=== PATIENT | male | born 1950 | race Caucasian/White ===

== ENCOUNTER 2017-05-20 12:42 | Outpatient (RCR) | payer MEDICARE, OTHER, SELFPAY ==
--- NOTE | 2017-05-25 08:03 | HP.PTEVAL_ITS ---
Patient's Visit Information Cecil DAN is a 67 year old M referred to Physical Therapy by DO MAL Valle with a diagnosis of R medial knee pain, degenerative menical tear. Date of Evaluation: 05/20/17 Physical Therapist: Bernard Bai - Visit Plan Frequency: 2x /Week Duration: 4 Weeks Plan: Start with core and hip ER strengthening. Progress quad/HS strengthening. Avoid deep squating. Progress as tolerated. Start with aquatic setting. Pt. desires to trial on own for 1-2 weeks and follow up with PT at that point. - Subjective Subjective: Pt. is here today for his initial evaluation with diagnosis of R knee pain, medial degenerative meniscal tear. Pt. is a plesant 67 y.o. male who is known to this PT after having a lumbar spine disectomy. Pt. arrives today with R medial knee pain that has been progressively getting worse over the last 4 months. He is questioning if this is coming from his back or not. Pt. reports increased pain: walking, squating, stairs, T-mill walking. Decreased pain: icing, OTC meds. Pt. denies locking or popping. Pt. denies N/T in either LE. Pt. is very active but has slowed down over the last 6 months after having back surgery. He performs a lot of walking and machine exercises in gym. He has stopped doing squats and LE strenthening as this point in time. He denies an event or mechanism of injury. He is hopeful to reduce symptoms in order to get back to gym and recreational exercises without issues. - Pain R medial knee Pain Intensity (Out of 10): 2 Pain Intensity Range: 0, 6 - Objective POSTURE: Pt. has slight R knee varus positioning. Pt. does have increased lateral wt. shift to L side. Pt. does have TKE in stance. Normal iliac crest positioning. PALPATION: Pt. has increased tenderness along medial joint line, no pain at patellar tendon and minimal symptoms at MCL. Pt. has no popliteal symptoms. No lateral R knee pain. NEUROLOGICAL: Pt. has normal sensation throughout bilateral LEs to light and sharp touch. Pt. has 2+ achilles and patellar DTR bilaterally. Pt. is able to rise on heels and toes without LOB or visible signs of weakness. ROM: L Knee- 0-0-132deg. R knee 0-0-126deg pt. reports increased pain with increased flexion and TKE with over pressure. Pt. has normal hip ROM, except tight with bilateral hip ER/IR and HS. LUMBAR SPINE- normal full mobility without increase in comparable sign. MMT: RLE- ankle 5/5 throughout; knee- ext 4+/5, flexion 4+/5 mild increase NW; hip- flexion 5-/5, abd 4/5, ext 4+/5. LLE- ankle- 5/5 throughout; knee- ext 5/5, flexion 5-/5; hip - flexion 4+/5, abd 4/5, ext 4+/5. Core strength- poor+. Pt. has difficulty maintaining core stability/pelivc positioning with eccentric LE lowering. GAIT : Pt. has normal step length bilaterally, but has increased R lateral lean during R stance phase. He reports mild increase NW during R stance phase. Pt. does have good initial contact with his heel and does maintain TKE during R stance phase. STAIRS: Pt. is able to complete without HR, but has increased pain during R loaded phases with both ascending and descending. - Special Tests R Knee Akilah - Meniscus: Negative R Knee Apley - Meniscus: Positive R Knee Disco Test - Meniscus: Positive R Knee Carla - ACL: Negative R Knee Posterior Drawer - PCL: Negative R Knee Valgus - MCL: Negative R Knee Varus - LCL: Negative - Goals Goal 1:: Pt. to be I with HEP. Goal Time Frame: 4-6 Weeks Goal 2:: Pt. to have full R knee ROM without increase in symptoms. Goal Time Frame: 4-6 Weeks Goal 3:: Pt. to have increased RLE strength by 1/2 grade of all effected musculature reducing stress applied to R knee with all functional mobility. Goal Time Frame: 4-6 Weeks Goal 4:: Pt. to negotiate steps with out HR with reciprocal pattern with 0-1/10 pain in R knee. Goal Time Frame: 4-6 Weeks Goal 5:: Pt. to ambulate unlimited distances with 0-1/10 pain in R knee allowing improved quality of life. Goal Time Frame: 4-6 Weeks Goal 6:: Pt. to resume gym exercises with 0-1/10 in R knee allowing for healthy life style. Goal Time Frame: 4-6 Weeks - Rehabilitation Potential Physical Therapy Diagnosis: Pt. has signs and symptoms consistent with degenerative medial meniscal tear. Pt. has subsequent slight hypomobility, and RLE weakness efffecting overall functional mobility and walking. I do not think this is coming from his back. He would benefit from PT to increase RLE and core strength to reduce stress applied to R knee with walking. He also talked to me about the orthovisc injections and do think this might help him with reducing symptoms. Rehabilitation Potential: Good - Anticipated Interventions Patient/Client Instruction: Educate patient on: Condition, Plan of Care, Risk Factors For the Purpose of:: To improve safety, To improve health and function, To foster healthy habits, To improve decision making, To facilitate caregiver knowledge, To improve self management, To prevent re-injury, To improve ability to perform tasks related to life management, To improve tolerance to ADL's Therapeutic Exercise to Include: Strength training, Power training, Balance training, Coordination, Flexibilty training, In an aquatic setting, Passive ROM, Active ROM, Dynamic Lumbar Stabilization For the Purpose of:: To decrease pain, To decrease swelling/inflammation, To improve nutrient delivery to tissue, To increase oxygenation perfusion, To improve muscle performance and motor function, To improve ability to perform ADL 's, To increase tolerance to activity/condition/position, To improve performance and independence with ADL's, To decrease level of supervision to perform tasks, To improve gait and locomotor functions, To improve health of tissue IF ES: Yes Cryotherapy (ice pack, ice massage): Yes Ultrasound (thermal/non thermal): Yes For the Purpose of:: To decrease pain, To increase ROM Thank you for the opportunity to evaluate your patient. For Medicare and Medicare HMO plans, please review the plan of care and approve it. It will need to be FAXED BACK to us at [phone] for Medicare purposes. Please let me know if there are questions or concerns regarding this plan of care. Physician Signature: Date:
--- NOTE | 2017-09-19 19:08 | HP.PTDCNRP_ITS ---
HP - Discharge Summary (1) - Patient Information Cecil DAN was seen in my office for initial evaluation on 05/20/17. The following Plan of Care was established for this patient: Initial Frequency: 2x /Week Initial Duration: 4 Weeks - Anticipated Interventions Patient/Client Instruction: Educate patient on: Condition, Plan of Care, Risk Factors For the Purpose of:: To improve safety, To improve health and function, To foster healthy habits, To improve decision making, To facilitate caregiver knowledge, To improve self management, To prevent re-injury, To improve ability to perform tasks related to life management, To improve tolerance to ADL's Therapeutic Exercise to Include: Strength training, Power training, Balance training, Coordination, Flexibilty training, In an aquatic setting, Passive ROM, Active ROM, Dynamic Lumbar Stabilization For the Purpose of:: To decrease pain, To decrease swelling/inflammation, To improve nutrient delivery to tissue, To increase oxygenation perfusion, To improve muscle performance and motor function, To improve ability to perform ADL 's, To increase tolerance to activity/condition/position, To improve performance and independence with ADL's, To decrease level of supervision to perform tasks, To improve gait and locomotor functions, To improve health of tissue IF ES: Yes Cryotherapy (ice pack, ice massage): Yes Ultrasound (thermal/non thermal): Yes For the Purpose of:: To decrease pain, To increase ROM This patient was last seen in our office 05/20/17. Pertinent comments regarding their Physical therapy will appear below: Pt. was seen for his R knee pain. Pt. was given quad, glute med and hip ER strengthening/stability. Pt. has been completing his HEP as prescribed. Pt. reports no need for futher PT. Pt. is pleased with current state and functionality of his knee. Pt. will be DC from PT at this point in time. At this point I will be discontinuing this patient from physical therapy. I would be happy to see this patient again in the future if found appropriate by the physician. Thank you! Bernard Bai
== END 2017-05-20 19:00 | disposition home or self-care (01) ==
LOC: PT 12:42
PROVIDERS: Family Provider Internal Medicine; PCP Internal Medicine; Visit Provider Orthopaedic Surgery
DX: S83.206D Unspecified tear of unspecified meniscus, current injury, right knee, subsequent encounter (principal); M25.561 Pain in right knee
CPT/HCPCS: 97110; 97162